=== PATIENT | male | born 1980 | race African-American/Black ===

== ENCOUNTER 2020-06-21 07:58 | Emergency (ER) | payer SELFPAY ==
[~2020-06-21] VITALS: Ht 170.2 cm; Wt 82.0 kg
[2020-06-21 09:06] LABS: BASOPHILS % 0.4 % (0.0-2.0); EOSINOPHILS % 1.5 % (0.0-5.0); HEMOGLOBIN. 15.5 g/dL (14.0-18.0); MEAN CORPUSCULAR HEMOGLOBIN 27.7 pg (28.0-32.0); MEAN CORPUSCULAR VOLUME 84.2 fL (80.0-94.0); MEAN PLATELET VOLUME 8.1 fl (7.4-10.4); MONOCYTES % 7.1 % (2.0-8.0); PLATELET 149 x1000/uL (130-400); RED BLOOD CELL COUNT 5.58 mill/uL (4.7-6.1); RED CELL DISTRIBUTION WIDTH 13.3 % (11.6-14.6)
[2020-06-21 09:08] LABS: CHLORIDE 106 mEq/L (98-107)
[2020-06-21] MEDS: SODIUM CHLORIDE 0.9% 1,000 ML IV ONE (09:11)
[2020-06-21] MEDS: ONDANSETRON HCL 4MG/2ML INJ IV STA (09:55)
[2020-06-21 10:25] VITALS: BP 118/72
== END 2020-06-21 10:42 | disposition home or self-care (01) ==
LOC: ER 08:14
DX: R51.9 Headache, unspecified (principal); R42 Dizziness and giddiness; R53.1 Weakness
CPT/HCPCS: 36415; 70450; 80053; 85025; 93005; 96361; 96374; 99285; J2405; J7030